=== PATIENT | male | born 1965 | race Asian ===

== ENCOUNTER 2016-09-25 17:44 | Outpatient (CLI) | payer OTHER ==
[2016-09-25 18:50] LABS: POTASSIUM 4.2 mmol/L (3.6-5.2); SODIUM 135 mmol/L (136-145)
[2016-09-25 18:54] LABS: PLATELET COUNT 412 K/uL (142-355)
== END 2016-09-25 19:59 | disposition home or self-care (01) ==
LOC: LAB 17:44
PROVIDERS: Nurse Practitioner Family
DX: I10 Essential (primary) hypertension (principal); E03.8 Other specified hypothyroidism; Z79.899 Other long term (current) drug therapy; R53.83 Other fatigue; R53.81 Other malaise
CPT/HCPCS: 80053; 80061; 82652; 83036; 84154; 84436; 84443; 85027

== ENCOUNTER 2016-10-15 13:11 | Outpatient (CLI) | payer OTHER | END 2016-10-15 19:03 | disposition home or self-care (01) | LOC: RESP 13:11 | DX: R06.09 Other forms of dyspnea (principal); E78.4 Other hyperlipidemia; I10 Essential (primary) hypertension | CPT/HCPCS: 93306 ==

== ENCOUNTER 2016-10-16 14:33 | Outpatient (CLI) | payer OTHER ==
[2016-10-16 15:00] LABS: POTASSIUM 3.7 mmol/L (3.6-5.2); SODIUM 135 mmol/L (136-145)
== END 2016-10-16 15:35 | disposition home or self-care (01) ==
LOC: LABW 14:33
PROVIDERS: Internal Medicine Cardiovascular Disease
DX: E78.4 Other hyperlipidemia (principal); Z79.899 Other long term (current) drug therapy; I50.9 Heart failure, unspecified; Z51.81 Encounter for therapeutic drug level monitoring
CPT/HCPCS: 36415; 80048; 83880

== ENCOUNTER 2018-07-23 15:03 | Outpatient (CLI) | payer OTHER | END 2018-07-23 19:46 | disposition home or self-care (01) | LOC: LABW 15:03 | DX: Z85.818 Personal history of malignant neoplasm of other sites of lip, oral cavity, and pharynx (principal) | CPT/HCPCS: 36415; 82310 ==

== ENCOUNTER 2018-07-30 15:26 | Outpatient (CLI) | payer OTHER | END 2018-07-30 23:08 | disposition home or self-care (01) | LOC: LABW 15:26 | DX: Z85.818 Personal history of malignant neoplasm of other sites of lip, oral cavity, and pharynx (principal) | CPT/HCPCS: 36415; 82310 ==

== ENCOUNTER 2018-08-10 14:44 | Outpatient (CLI) | payer OTHER | END 2018-08-10 23:44 | disposition home or self-care (01) | LOC: LABW 14:44 | DX: Z85.818 Personal history of malignant neoplasm of other sites of lip, oral cavity, and pharynx (principal) | CPT/HCPCS: 36415; 82310 ==

== ENCOUNTER 2018-08-20 12:38 | Outpatient (CLI) | payer OTHER | END 2018-08-20 23:47 | disposition home or self-care (01) | LOC: LABW 12:38 | DX: Z85.818 Personal history of malignant neoplasm of other sites of lip, oral cavity, and pharynx (principal); Z79.899 Other long term (current) drug therapy | CPT/HCPCS: 36415; 84436; 84443 ==

== ENCOUNTER 2020-03-31 09:52 | Outpatient (CLI) | payer OTHER ==
[2020-03-31 10:22] LABS: PLATELET COUNT 367 K/uL (142-355)
[2020-03-31 10:51] LABS: POTASSIUM 3.7 mmol/L (3.6-5.2)
== END 2020-03-31 19:34 | disposition home or self-care (01) ==
LOC: LABW 09:52
PROVIDERS: ATTEND Registered Nurse
DX: Z12.5 Encounter for screening for malignant neoplasm of prostate (principal); R53.83 Other fatigue; I10 Essential (primary) hypertension; E03.8 Other specified hypothyroidism
CPT/HCPCS: 36415; 80053; 80061; 84153; 84439; 84443; 85027